=== PATIENT | female | born 1945 | race Caucasian/White ===

== ENCOUNTER 2018-07-05 18:41 | Inpatient (IN) | payer OTHER ==
[2018-07-05] MEDS: ACETAMINOPHEN 500 MG TAB PO (20:33)
[2018-07-05 23:10] LABS: ADD MAN DIFF? NO
[2018-07-05] MEDS: morphine 2 MG INJ IV (23:39)
[2018-07-05] MEDS: LACTATED RINGER'S 1,000 ML IV (23:39)
[2018-07-05 23:41] LABS: WHITE BLOOD COUNT 8.4 10^3/ul (4.8-10.8)
[2018-07-05 23:41] LABS: BASOPHIL # 0.1 10^3/ul (0.0-0.1); BASOPHILS % 0.6 % (0.0-2.0); EOSINOPHILS % 0.5 % (0.0-7.0); HEMATOCRIT 43.8 % (37.0-47.0); HEMOGLOBIN 14.8 g/dl (12.0-16.0); IMMATURE GRANS #M 0.03 10^3/ul; IMMATURE GRANS % (M) 0.4 %; LYMPHOCYTES # 1.8 10^3/ul (0.8-2.9); LYMPHOCYTES % 21.7 % (15.0-51.0); MEAN CORPUSCULAR HGB CONC 33.8 g/dl (32.0-37.0); MEAN CORPUSCULAR VOLUME 94.6 fl (82.0-101.0); MEAN PLATELET VOLUME 8.5 fl (7.4-10.4); MONOCYTE # 0.6 10^3/ul (0.3-0.9); MONOCYTES % 7.2 % (0.0-11.0); NEUTROPHIL # 5.8 10^3/ul (1.6-7.5); NEUTROPHILS % 69.6 % (39.0-77.0); PLATELET COUNT 295 10^3/UL (140-415); RED BLOOD COUNT 4.63 10^6/ul (4.20-5.40); RED CELL DISTRIBUTION WIDTH 12.8 % (11.5-14.5)
[2018-07-05 23:58] LABS: ANION GAP 15 (8-16); BLOOD UREA NITROGEN 17 mg/dl (7-20); CALCIUM 10.1 mg/dl (8.4-10.2); CARBON DIOXIDE 31 mmol/L (21-31); CHLORIDE 98 mmol/L (97-110); CREATININE 0.73 mg/dl (0.44-1.00); GLUCOSE 139 mg/dl (70-220); POTASSIUM 4.1 mmol/L (3.5-5.1); SODIUM 140 mmol/L (135-144)
[2018-07-06] LABS: INR 0.83; PROTIME 11.5 Sec (11.9-14.9); PT RATIO 0.9
[2018-07-06 00:01] LABS: PARTIAL THROMBOPLASTIN TIME 23.2 Sec (25.0-35.0)
[2018-07-06 00:16] LABS: ADD UMIC YES; UR ASCORBIC ACID NEGATIVE (NEGATIVE); UR BACTERIA FEW /HPF (NONE SEEN); UR BILIRUBIN (Dip) NEGATIVE (NEGATIVE); UR BLOOD (Dip) 1+ mg/dL (NEGATIVE); UR CALCIUM OXALATE CRYSTAL MANY /HPF (NONE SEEN); UR CLARITY SLIGHTLY CLOUDY (CLEAR); UR COLOR YELLOW (YELLOW); UR GLUCOSE (Dip) NEGATIVE (NEGATIVE); UR KETONES (Dip) TRACE mg/dL (NEGATIVE); UR LEUKOCYTE ESTERASE (Dip) TRACE Leu/ul (NEGATIVE); UR MUCUS FEW /HPF (NONE SEEN); UR NITRITE (Dip) NEGATIVE (NEGATIVE); UR RBC 13 /HPF (0-5); UR SPECIFIC GRAVITY (Dip) 1.023 (1.003-1.030); UR SQUAMOUS EPITHELIAL CELL FEW /HPF (FEW); UR TOTAL PROTEIN (Dip) NEGATIVE (NEGATIVE); UR UROBILINOGEN (Dip) 1+ mg/dL (NEGATIVE); UR WBC 5 /HPF (0-5)
[2018-07-06] MEDS ORDERED: DOCUSATE SODIUM 100 MG CAP PO (01:00)
[2018-07-06] MEDS ORDERED: NACL 0.9% 3 ML SYG IV ×2 (01:00→20:00)
[2018-07-06] MEDS ORDERED: MAGNESIUM HYDROXIDE 30ML CUP PO (01:00)
[2018-07-06] MEDS ORDERED: BISACODYL 10 MG SUPP PR (01:00)
[2018-07-06] MEDS ORDERED: HYDROCODONE/APAP (5/325) TAB PO ×3 (01:00→20:00)
[2018-07-06] MEDS ORDERED: ACETAMINOPHEN 325 MG TAB PO (01:00)
[2018-07-06] MEDS ORDERED: ONDANSETRON 4 MG INJ IV ×2 (01:00→17:30)
[2018-07-06] MEDS: hydrALAzine 20 MG INJ IV (01:29)
[2018-07-06] MEDS: DEXTROSE 5%-0.9% NACL 1,000 ML IV ×2 (03:18→11:26)
[2018-07-06 05:48] LABS: ADD MAN DIFF? NO
[2018-07-06 05:55] LABS: WHITE BLOOD COUNT 6.8 10^3/ul (4.8-10.8)
[2018-07-06 05:55] LABS: BASOPHILS % 0.4 % (0.0-2.0); EOSINOPHILS % 0.3 % (0.0-7.0); HEMATOCRIT 34.2 % (37.0-47.0); HEMOGLOBIN 11.8 g/dl (12.0-16.0); IMMATURE GRANS #M 0.01 10^3/ul; IMMATURE GRANS % (M) 0.1 %; LYMPHOCYTES # 1.2 10^3/ul (0.8-2.9); LYMPHOCYTES % 17.6 % (15.0-51.0); MEAN CORPUSCULAR HEMOGLOBIN 32.4 pg (29.0-33.0); MEAN CORPUSCULAR HGB CONC 34.5 g/dl (32.0-37.0); MEAN PLATELET VOLUME 8.6 fl (7.4-10.4); MONOCYTE # 0.8 10^3/ul (0.3-0.9); MONOCYTES % 11.5 % (0.0-11.0); NEUTROPHIL # 4.7 10^3/ul (1.6-7.5); NEUTROPHILS % 70.1 % (39.0-77.0); PLATELET COUNT 226 10^3/UL (140-415); RED BLOOD COUNT 3.64 10^6/ul (4.20-5.40); RED CELL DISTRIBUTION WIDTH 12.9 % (11.5-14.5)
[2018-07-06 06:35] LABS: ANION GAP 12 (8-16); BLOOD UREA NITROGEN 15 mg/dl (7-20); CARBON DIOXIDE 28 mmol/L (21-31); CHLORIDE 104 mmol/L (97-110); CREATININE 0.54 mg/dl (0.44-1.00); GLUCOSE 117 mg/dl (70-220); MAGNESIUM 1.7 mg/dl (1.7-2.5); POTASSIUM 3.4 mmol/L (3.5-5.1); SODIUM 141 mmol/L (135-144)
[2018-07-06] MEDS: morphine 2 MG INJ IV (08:21)
[2018-07-06] MEDS: FAMOTIDINE 20 MG INJ IV (08:21)
[2018-07-06] MEDS: POTASSIUM CHLORIDE (SR) 20 MEQ TAB PO (11:26)
[2018-07-06] MEDS ORDERED: MIDAZOLAM 1 MG/ML 2 ML INJ (16:17)
[2018-07-06] MEDS ORDERED: METOCLOPRAMIDE 10 MG INJ (16:17)
[2018-07-06] MEDS ORDERED: ROPIVACAINE 0.2% 20 ML VIAL (16:18)
[2018-07-06] MEDS ORDERED: PROPOFOL 20 ML (16:30)
[2018-07-06] MEDS ORDERED: CEFAZOLIN 1 GM INJ (16:30)
[2018-07-06] MEDS: POLYMYXIN/BACITRACIN 1L IRRIG IRR (17:17)
[2018-07-06] MEDS ORDERED: EPHEDrine SULFATE 50 MG/5 ML SYG IV (17:30)
[2018-07-06] MEDS ORDERED: HYDROmorphONE 1 MG/5 ML IV SYRINGE IV ×3 (17:30)
[2018-07-06] MEDS ORDERED: ONDANSETRON 4 MG INJ (17:40)
[2018-07-06] MEDS ORDERED: morphine 2 MG INJ IV (20:00)
[2018-07-06] MEDS ORDERED: CEFAZOLIN 1 GM/50 ML (PMX) 50 ML IVPB (20:00)
[2018-07-06] MEDS: ATORVASTATIN 20 MG TAB PO (22:18)
[2018-07-06] MEDS: D5W-0.45 NACL + KCL 20 MEQ 1,000 ML IV (22:18)
[2018-07-07] MEDS: CEFAZOLIN 1 GM/50 ML (PMX) 50 ML IVPB ×2 (02:11→10:11)
[2018-07-07] MEDS: morphine 2 MG INJ IV (05:35)
[2018-07-07 08:16] LABS: ADD MAN DIFF? NO
[2018-07-07 08:18] LABS: WHITE BLOOD COUNT 6.1 10^3/ul (4.8-10.8)
[2018-07-07 08:18] LABS: BASOPHILS % 0.5 % (0.0-2.0); EOSINOPHILS % 0.2 % (0.0-7.0); HEMATOCRIT 31.6 % (37.0-47.0); LYMPHOCYTES # 1.1 10^3/ul (0.8-2.9); LYMPHOCYTES % 18.5 % (15.0-51.0); MEAN CORPUSCULAR HEMOGLOBIN 32.9 pg (29.0-33.0); MEAN CORPUSCULAR HGB CONC 34.8 g/dl (32.0-37.0); MEAN CORPUSCULAR VOLUME 94.6 fl (82.0-101.0); MEAN PLATELET VOLUME 8.6 fl (7.4-10.4); MONOCYTE # 0.8 10^3/ul (0.3-0.9); NEUTROPHIL # 4.1 10^3/ul (1.6-7.5); NEUTROPHILS % 67.6 % (39.0-77.0); PLATELET COUNT 200 10^3/UL (140-415); RED BLOOD COUNT 3.34 10^6/ul (4.20-5.40); RED CELL DISTRIBUTION WIDTH 13.1 % (11.5-14.5)
[2018-07-07 08:36] LABS: MAGNESIUM 1.6 mg/dl (1.7-2.5)
[2018-07-07 08:38] LABS: ANION GAP 12 (8-16); BLOOD UREA NITROGEN 7 mg/dl (7-20); CARBON DIOXIDE 27 mmol/L (21-31); CHLORIDE 104 mmol/L (97-110); CREATININE 0.55 mg/dl (0.44-1.00); GLUCOSE 123 mg/dl (70-220); POTASSIUM 4.2 mmol/L (3.5-5.1); SODIUM 139 mmol/L (135-144)
[2018-07-07] MEDS: D5W-0.45 NACL + KCL 20 MEQ 1,000 ML IV ×2 (09:01→15:46)
[2018-07-07] MEDS: FAMOTIDINE 20 MG INJ IV (09:01)
[2018-07-07] MEDS: MAGNESIUM SULFATE 2 GM/50 ML 50 ML IVPB (11:08)
== END 2018-07-07 16:59 | disposition home or self-care (01) | DRG 512 ==
LOC: FTE 18:41 → PP2 23:43
PROC: 0PSL04Z Reposition Left Ulna with Internal Fixation Device, Open Approach (ICD-10-PCS; principal; 2018-07-06 16:16)
DX: S52.022A Displaced fracture of olecranon process without intraarticular extension of left ulna, initial encounter for closed fracture (principal); W01.0XXA Fall on same level from slipping, tripping and stumbling without subsequent striking against object, initial encounter; Y93.89 Activity, other specified; Y92.019 Unspecified place in single-family (private) house as the place of occurrence of the external cause; Y99.8 Other external cause status; I10 Essential (primary) hypertension; E87.6 Hypokalemia; G25.0 Essential tremor; Z90.710 Acquired absence of both cervix and uterus
CPT/HCPCS: 36415; 71045; 73080-LT; 80048; 81001; 83735; 85025; 85610; 85730; 93005; 96374; 97161; 99285-25

== ENCOUNTER 2019-01-08 17:51 | Observation (INO) | payer OTHER ==
[2019-01-08 20:16] LABS: ADD MAN DIFF? NO
[2019-01-08 20:18] LABS: WHITE BLOOD COUNT 5.5 10^3/ul (4.8-10.8)
[2019-01-08 20:18] LABS: BASOPHILS % 0.6 % (0.0-2.0); EOSINOPHILS % 0.4 % (0.0-7.0); HEMATOCRIT 39.4 % (37.0-47.0); HEMOGLOBIN 13.5 g/dl (12.0-16.0); LYMPHOCYTES # 1.1 10^3/ul (0.8-2.9); MEAN CORPUSCULAR HGB CONC 34.3 g/dl (32.0-37.0); MEAN CORPUSCULAR VOLUME 93.4 fl (82.0-101.0); MEAN PLATELET VOLUME 8.3 fl (7.4-10.4); MONOCYTE # 0.5 10^3/ul (0.3-0.9); MONOCYTES % 9.2 % (0.0-11.0); NEUTROPHIL # 3.8 10^3/ul (1.6-7.5); NEUTROPHILS % 69.4 % (39.0-77.0); PLATELET COUNT 297 10^3/UL (140-415); RED BLOOD COUNT 4.22 10^6/ul (4.20-5.40); RED CELL DISTRIBUTION WIDTH 12.3 % (11.5-14.5)
[2019-01-08] MEDS: SOD CHLORIDE 0.9% 1,000 ML IV (20:23)
[2019-01-08 20:37] LABS: INR 0.86; PROTIME 11.8 Sec (11.9-14.9); PT RATIO 0.9
[2019-01-08 20:38] LABS: ALANINE AMINOTRANSFERASE 27 IU/L (13-69); ALBUMIN/GLOBULIN RATIO 1.72; ALKALINE PHOSPHATASE 82 IU/L (42-121); ANION GAP 19 (5-13); ASPARTATE AMINO TRANSFERASE 24 IU/L (15-46); BILIRUBIN,INDIRECT 0.4 mg/dl (0-1.1); BILIRUBIN,TOTAL 0.4 mg/dl (0.2-1.3); BLOOD UREA NITROGEN 17 mg/dl (7-20); CALCIUM 10.1 mg/dl (8.4-10.2); CARBON DIOXIDE 26 mmol/L (21-31); CHLORIDE 95 mmol/L (97-110); CREATINE KINASE 29 IU/L (23-200); CREATININE 0.71 mg/dl (0.44-1.00); GLUCOSE 104 mg/dl (70-220); PARTIAL THROMBOPLASTIN TIME 24.9 Sec (23.0-35.0); POTASSIUM 3.9 mmol/L (3.5-5.1); SODIUM 140 mmol/L (135-144); TOTAL PROTEIN 7.9 g/dl (6.1-8.1)
[2019-01-08 20:48] LABS: CK-MB 0.28 ng/ml (0.0-2.4); TROPONIN-I < 0.012 ng/ml (0.000-0.120)
[2019-01-09 00:56] LABS: LACTIC ACID 0.9 mmol/L (0.5-2.0)
[2019-01-09] MEDS ORDERED: BISACODYL 10 MG SUPP PR (02:30)
[2019-01-09] MEDS ORDERED: ACETAMINOPHEN 325 MG TAB PO (02:30)
[2019-01-09] MEDS ORDERED: ONDANSETRON 4 MG INJ IV (02:30)
[2019-01-09] MEDS ORDERED: NACL 0.9% 3 ML SYG IV (02:30)
[2019-01-09] MEDS ORDERED: MAGNESIUM HYDROXIDE 30ML CUP PO (02:30)
[2019-01-09] MEDS ORDERED: DOCUSATE SODIUM 100 MG CAP PO (02:30)
[2019-01-09] MEDS ORDERED: HYDROCODONE/APAP (5/325) TAB PO ×2 (02:30)
[2019-01-09] MEDS: hydrALAzine 20 MG INJ IV (04:28)
[2019-01-09 05:50] LABS: ANION GAP 14 (5-13); BLOOD UREA NITROGEN 15 mg/dl (7-20); CALCIUM 9.6 mg/dl (8.4-10.2); CARBON DIOXIDE 27 mmol/L (21-31); CHLORIDE 101 mmol/L (97-110); CHOL/HDL RATIO 2.3 RATIO; CREATININE 0.65 mg/dl (0.44-1.00); GLUCOSE 90 mg/dl (70-220); HDL CHOLESTEROL 76 mg/dl (33-92); LDL CHOLESTEROL,CALCULATED 87 mg/dl; MAGNESIUM 1.8 mg/dl (1.7-2.5); POTASSIUM 3.7 mmol/L (3.5-5.1); SODIUM 142 mmol/L (135-144); TRIGLYCERIDES 61 mg/dl (0-149)
[2019-01-09 05:58] LABS: CHOLESTEROL 175 mg/dl (100-200)
[2019-01-09 06:07] LABS: HEMOGLOBIN A1C 5.1 % (0-5.9)
[2019-01-09] MEDS: FAMOTIDINE 20 MG TAB PO (08:34)
[2019-01-09] MEDS: AMLODIPINE 5 MG TAB PO (08:34)
[2019-01-09] MEDS: ASPIRIN 81 MG TAB PO (08:34)
== END 2019-01-09 16:45 | disposition home or self-care (01) ==
LOC: E/R 17:51 → 6WM 01-09 01:12
DX: H53.2 Diplopia (principal); R27.0 Ataxia, unspecified; E78.5 Hyperlipidemia, unspecified; I10 Essential (primary) hypertension
CPT/HCPCS: 70450; 70551; 71045; 80048; 80053; 80061; 82550; 82553; 83036; 83605; 83735; 84484; 85025; 85610; 85730; 87400; 93005; 93880; 97161; 99285-25; G0378

== ENCOUNTER 2019-03-01 13:19 | Emergency (ER) | payer OTHER ==
[2019-03-01] MEDS: IBUPROFEN 200 MG TAB PO (14:13)
== END 2019-03-01 16:20 | disposition home or self-care (01) ==
LOC: FTE 13:19
DX: S62.611A Displaced fracture of proximal phalanx of left index finger, initial encounter for closed fracture (principal); I10 Essential (primary) hypertension; S62.617A Displaced fracture of proximal phalanx of left little finger, initial encounter for closed fracture; S62.613A Displaced fracture of proximal phalanx of left middle finger, initial encounter for closed fracture; S62.615A Displaced fracture of proximal phalanx of left ring finger, initial encounter for closed fracture; W01.0XXA Fall on same level from slipping, tripping and stumbling without subsequent striking against object, initial encounter; Y92.9 Unspecified place or not applicable
CPT/HCPCS: 26725; 73130-LT; 73130-RT; 99284-25